=== PATIENT | female | born 1955 | race Caucasian/White ===

== ENCOUNTER 2017-03-24 08:48 | Outpatient (CLI) | payer OTHER | END 2017-03-24 08:49 | disposition home or self-care (01) | DX: D64.9 Anemia, unspecified (principal); Z51.81 Encounter for therapeutic drug level monitoring; E78.5 Hyperlipidemia, unspecified ==

== ENCOUNTER 2018-02-05 09:55 | Emergency (ER) | payer OTHER ==
[2018-02-05] MEDS ORDERED: ACETAMINOPHEN 325 MG TABLET PO STA (10:41)
--- NOTE | 2018-02-05 11:21 | XRAY Report ---
EXAM: CHEST RADIOGRAPHY EXAM DATE: 02/05/2018 11:09 AM. CLINICAL HISTORY: Productive cough fever,. COMPARISON: None. TECHNIQUE: 2 views. FINDINGS: Lungs/Pleura: Right midlung calcified granuloma. Increased interstitial markings at the left base. No other focal opacities evident. No pleural effusion. No pneumothorax. Normal volumes. Mediastinum: Heart and mediastinal contours are unremarkable. Other: Degenerative change in the spine with mild S-shaped thoracolumbar scoliosis. IMPRESSION: Increased interstitial markings left lung base could be chronic related to fibrosis or co uld represent an early infectious/viral process. No other potentially acute findings noted. [facility] Referring Provider Line: [phone] SITE ID: [id number]
--- NOTE | 2018-02-05 11:55 | ED Physician Documentation ---
PD HPI URI - Stated complaint Stated Complaint: FLU LIKE SX - Chief complaint Chief Complaint: Fever - History obtained from History obtained from: Patient - History of Present Illness Timing - onset: How many days ago (2) Timing details: Gradual onset Associated symptoms: Fever, Chills, Sore throat, Productive cough Recently seen: Clinic (She was seen in the outpatient clinic this morning, and was sent to the emergency department for further evaluation and treatment.) - Additional information Additional information: The patient is a 62-year-old female who presents with productive cough, fatigue , fever and chills, of 2 day's duration. She also complains of a slightly sore throat, and had a headache 2 days ago, but it is minimal now. She denies history of similar symptoms in the past. She does not smoke cigarettes. She has not had a flu vaccination. She was seen in the clinic this morning, and was sent to the emergency department for further evaluation and treatment. Review of Systems Constitutional: reports: Fever, Chills, Fatigue Eyes: reports: Photophobia (mild) Ears: reports: Ear pain Nose: denies: Congestion Throat: reports: Sore throat (slight) Cardiac: denies: Chest pain / pressure, Palpitations Respiratory: reports: Cough (productive). denies: Dyspnea GI: denies: Abdominal Pain, Nausea, Vomiting, Diarrhea : denies: Dysuria Skin: denies: Rash Musculoskeletal: denies: Back pain, Extremity swelling Neurologic: reports: Headache (mild). 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 - Present Medications Home Medications: Ambulatory Orders Medication Instructions Recorded Confirmed Citalopram [CeleXA] 10 mg PO ONCE 02/18/14 02/18/14 Vit D3-Vit K/Berberine/Hops 1 each PO 02/18/14 02/18/14 [Ostera Tablet] Azithromycin [Zithromax] 250 mg PO DAILY #6 tablet 02/05/18 - Allergies Allergies/Adverse Reactions: Allergies Allergy/AdvReac Type Severity Reaction Status Date / Time gentamicin [Gentamicin] Allergy Severe Unknown Verified 02/21/14 14:02 Sulfa (Sulfonamide Allergy Intermediate Rash Verified 02/18/14 14:55 Antibiotics) codeine AdvReac Mild Nausea Verified 02/21/14 14:02 - Social History Does the pt smoke?: No Smoking Status: Never smoker PD ED PE NORMAL - Vitals Vital signs reviewed: Yes (Slightly tachypneic initially.) - General General: Alert and oriented X 3, Well developed/nourished - HEENT HEENT: Atraumatic, EOMI, Ears normal, Moist mucous membranes, Pharynx benign - Neck Neck: Supple, no meningeal sign, No adenopathy, No JVD - Cardiac Cardiac: RRR, No murmur - Respiratory Respiratory: Clear bilaterally (No wheezes, rales, or rhonchi.) - Abdomen Abdomen: Soft, Non tender - Back Back: No CVA TTP - Derm Derm: No rash - Neuro Neuro: Alert and oriented X 3, No motor deficit, Normal speech Results - Vitals Vitals: Vital Signs - 24 hr 02/05/18 12:04 Temperature 37.4 C Heart Rate 73 Respiratory 20 Rate Blood Pressure 106/73 O2 Saturation 97 Oxygen O2 Source Room air - Labs Labs: Laboratory Tests 02/05/18 10:45 Influenza A (Rapid) Negative Influenza B (Rapid) Negative Influenza Types A,B Ag - - Rads (name of study) CXR Radiology: Prelim report reviewed, EMP read contemporaneously, See rad report ( Increased interstitial markings left lung base, could be chronic related to fibrosis or could represent an early infectious/viral process. No other potentially acute findings noted.) PD MEDICAL DECISION MAKING - ED course Complexity details: reviewed results, re-evaluated patient, considered differential, d/w patient, d/w family ED course: The patient's presentation is consistent with pneumonia, with chest x-ray revealing left lower lobe interstitial markings consistent with early infectious process. Her pulse oximetry is normal at 97% on room air. Her presentation does not suggest congestive heart failure or pulmonary embolus. Treatment in the emergency department included administration of Zithromax 500 mg orally, and acetaminophen 650 mg orally. I discussed with her and her antibiotic treatment and outpatient follow-up, as well as potentially worrisome signs or symptoms that should prompt reevaluation is needed emergency department. Departure - Departure Disposition: 01 Home, Self Care Clinical Impression: Pneumonia Qualifiers: Pneumonia type: due to unspecified organism Laterality: left Lung location: lower lobe of lung Qualified Code(s): J18.1 - Lobar pneumonia, unspecified organism Condition: Stable Instructions: ED Pneumonia Adult Follow-Up: JJ SIMMONS MD [Physician No Access] - Prescriptions: Azithromycin [Zithromax] 250 mg PO DAILY #6 tablet Comments: Take Zithromax daily as prescribed. You can use Tylenol or ibuprofen if needed for fever or discomfort. Follow up with your primary physician within 1-2 weeks. Call to schedule an appointment. Return to the emergency department if you develop increasing difficulty breathing, or otherwise worsening symptoms. Discharge Date/Time: 02/05/18 12:11
[2018-02-05] MEDS ORDERED: IBUPROFEN 800 MG TABLET PO STA (11:56)
[2018-02-05] MEDS ORDERED: AZITHROMYCIN 250 MG TABLET PO STA (11:57)
[2018-02-05 12:07] VITALS: BP 106/73
== END 2018-02-05 12:11 | disposition home or self-care (01) ==
LOC: ED 09:55
DX: J18.9 Pneumonia, unspecified organism (principal)
CPT/HCPCS: 71046; 87275; 87276; 99283; 99284; A9270

== ENCOUNTER 2018-04-03 09:38 | Outpatient (CLI) | payer OTHER ==
--- NOTE | 2018-04-03 13:57 | XRAY Report ---
TWO VIEW BILATERAL KNEES: 04/03/2018 CLINICAL INDICATION: Osteoarthritis. FINDINGS: Standing frontal and lateral views of the bilateral knees demonstrate moderate bilateral osteoarthritis. There is no evidence of acute fracture. No effusion is present on either side. IMPRESSION: MODERATE BILATERAL OSTEOARTHRITIS. TD: 04/03/2018 11:24
== END 2018-04-03 09:39 | disposition home or self-care (01) ==
LOC: DI 09:38
PROVIDERS: ATTEND Internal Medicine
DX: M17.0 Bilateral primary osteoarthritis of knee (principal)
CPT/HCPCS: 73565

== ENCOUNTER 2018-07-15 10:40 | Outpatient (CLI) | payer OTHER ==
[2018-07-15 17:36] LABS: BUN - BLOOD UREA NITROGEN 12 mg/dL (6-20); CARBON DIOXIDE - CO2 27 mmol/L (21-32); CHLORIDE 104 mmol/L (101-111); CHOL/HDL RATIO 3.1 (<4.4); CHOLESTEROL 249 mg/dL; CREATININE 0.5 mg/dL (0.4-1.0); GFR - MDRD 124 (>89); GLUCOSE 79 mg/dL (70-100); HDL CHOLESTEROL 81 mg/dL; LDL CHOLESTEROL,CALCULATED 154 mg/dL; LDL/HDL RATIO 1.9 (<4.4); SODIUM 138 mmol/L (135-145); VLDL CHOLESTEROL 14 mg/dL
== END 2018-07-15 10:41 | disposition home or self-care (01) ==
LOC: LAB.F 10:40
PROVIDERS: ATTEND Internal Medicine
DX: Z00.00 Encounter for general adult medical examination without abnormal findings (principal); M17.9 Osteoarthritis of knee, unspecified
CPT/HCPCS: 36415; 80048; 80061; 83721

== ENCOUNTER 2018-12-24 07:48 | Outpatient (CLI) | payer MEDICARE, OTHER ==
--- NOTE | 2018-12-24 08:34 | Mammography Report ---
Reason: SCREENING FOR BREAST CANCER Procedure Date: 12/24/2018 Accession Number: [id number] / [id number] Procedure: [facility] - Screening Mammo w/Fazal CPT Code: FULL RESULT: EXAM: Screening Mammo w/Fazal DATE: 12/24/2018 8:24 AM CLINICAL HISTORY: Routine screening. No reported personal or family history of breast cancer. History of bilateral breast reduction. TECHNIQUE: Bilateral CC and MLO views were obtained. COMPARISON: 03/27/2016 through 10/01/2012 FINDINGS: The breasts demonstrate scattered fibroglandular densities bilaterally. Bilateral breasts: There are stable operative changes of reduction mammoplasty. There are no suspicious masses, calcifications or areas of distortion. IMPRESSION: Benign findings RECOMMENDATION: Routine annual screening unless otherwise clinically indicated. BI-RADS CATEGORY 2: Benign findings STANDARD QUALIFYING STATEMENTS: 1. This examination was not reviewed with the aid of Computer-Aided Detection (CAD). 2. A negative or benign imaging report should not preclude biopsy if clinically suspicious findings are present. 3. Dense breasts may obscure an underlying neoplasm. 4. This examination was reviewed with the aid of 3D breast imaging (tomosynthesis).
== END 2018-12-24 07:49 | disposition home or self-care (01) ==
LOC: DI 07:48
PROVIDERS: ATTEND Internal Medicine
DX: Z12.31 Encounter for screening mammogram for malignant neoplasm of breast (principal)
CPT/HCPCS: 77063; 77067

== ENCOUNTER 2018-12-24 07:50 | Outpatient (CLI) | payer MEDICARE, OTHER ==
--- NOTE | 2018-12-24 12:34 | DEXA Report ---
Reason: MENOPAUSAL AND POSTMENOPAUSAL DISORDERS Procedure Date: 12/24/2018 Accession Number: [id number] / [id number] Procedure: DEX - Dexa Spine and/or Hip CPT Code: FULL RESULT: EXAM: Dexa Spine and/or Hip DATE: 12/24/2018 8:38 AM CLINICAL HISTORY: MENOPAUSAL AND POSTMENOPAUSAL DISORDERS TECHNIQUE: Dual energy x-ray absorptiometry (DXA) was performed on a tinyclues System. Regions measured are the AP Spine, femoral neck, and if needed forearm. COMPARISON: None. In accordance with the International Society for Clinical Densitometry (ISCD) guidelines, data from previous exams may be reanalyzed using current recommendations and techniques. This is done to allow a more accurate basis for comparison with the current study. FINDINGS: The data for the lumbar spine is as follows: BMD (g/cm/cm) T-SCORE Z-SCORE REGION L1 0.919 -1.8 -0.6 L2 1.018 -1.5 -0.3 L3 1.115 -0.7 0.5 L4 1.256 0.5 1.6 TOTAL 1.083 -0.8 0.4 NOTE: All evaluable vertebrae are used for classification The data for the hip is as follows: BMD (g/cm/cm) T-SCORE Z-SCORE REGION Neck 0.783 -1.8 -0.6 TOTAL 0.774 -1.9 -1.0 NOTE: The femoral neck or total proximal femur, whichever is lowest, is used for classification. IMPRESSION: THE WHO CLASSIFICATION BASED ON THE INTERNATIONAL REFERENCE STANDARD IS OSTEOPENIA. THE FRACTURE RISK IS INCREASED. RECOMMENDATION: Patients with diagnosis of osteoporosis or osteopenia should have regular bone mineral density assessment. For those eligible for Medicare, routine testing is allowed once every 2 years. Testing frequency can be increased for patients who have rapidly progressing disease or for those who are receiving medical therapy to restore bone mass. COMMENT: World Health Organization (WHO) definitions for osteoporosis and osteopenia: NORMAL BMD: T-score at -1.0 or higher, fracture risk is low OSTEOPENIA BMD: T-score between -1.0 and -2.5, fracture risk is increased. OSTEOPOROSIS BMD: T-score at -2.5 or lower, fracture risk is high. National Osteoporosis Foundation recommends: 1. Obtain adequate dietary calcium (at least 1200 mg per day) and vitamin D (400-800 international units per day). 2. Participate, as appropriate, in regular weightbearing and muscle-strengthening exercise. 3. Avoid tobacco use and reduce alcohol and caffeine intake. 4. For more detailed information see the website at www.NOF.org.
== END 2018-12-24 07:51 | disposition home or self-care (01) ==
LOC: DI 07:50
PROVIDERS: ATTEND Internal Medicine
DX: M85.89 Other specified disorders of bone density and structure, multiple sites (principal); N95.9 Unspecified menopausal and perimenopausal disorder
CPT/HCPCS: 77080

== ENCOUNTER 2021-09-15 15:02 | Emergency (ER) | payer MEDICARE, OTHER ==
[2021-09-15 15:21] VITALS: BP 114/69
--- NOTE | 2021-09-15 15:29 | ED Physician Documentation ---
PD HPI HEAD INJURY - Stated complaint Stated Complaint: RIGHT KNEE INJURY, POST KNEE SURGERY - Chief complaint Chief Complaint: Trauma Hd/Nk - History obtained from History obtained from: Patient - Additional information Additional information: She was walking on the sidewalk about an hour ago and tripped and fell face forward onto the pavement and also hit her right knee on the ground which was replaced in January of this year. She is quite worried about the knee. She is still able to walk and bear weight. No loss of consciousness or headache. 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 Home Medications: Ambulatory Orders Medication Instructions Recorded Confirmed Citalopram [CeleXA] 10 mg PO ONCE 02/18/14 02/18/14 Vit D3-Vit K/Berberine/Hops 1 each PO 02/18/14 02/18/14 [Ostera Tablet] Azithromycin [Zithromax] 250 mg PO DAILY #6 tablet 02/05/18 - Allergies Allergies/Adverse Reactions: Allergies Allergy/AdvReac Type Severity Reaction Status Date / Time gentamicin [Gentamicin] Allergy Severe Unknown Verified 09/15/21 15:21 Sulfa (Sulfonamide Allergy Intermediate Rash Verified 09/15/21 15:21 Antibiotics) codeine AdvReac Mild Nausea Verified 09/15/21 15:21 - Social History Does the pt smoke?: No Smoking Status: Never smoker PD ED PE NORMAL - Vitals Vital signs reviewed: Yes - General General: Alert and oriented X 3, No acute distress - HEENT HEENT: PERRL, EOMI, Other (The inferior "meat," of the nose is swollen but it is in the midline and not tender over the bones of the nose. No facial bony tenderness otherwise.) - Neck Neck: Supple, no meningeal sign, No bony TTP - Extremities Extremities: Other (There is an abrasion within the inferior part of her otherwise unremarkable anterior knee incision which is otherwise well-healed and she is focally tender but there is no other bony tenderness of the right knee and no ligamentous laxity.) - Neuro Neuro: Alert and oriented X 3, Normal speech Results - Vitals Vitals: Vital Signs - 24 hr 09/15/21 15:16 Temperature 36.5 C Heart Rate 71 Respiratory 18 Rate Blood Pressure 114/69 O2 Saturation 99 Oxygen O2 Source Room air - Rads (name of study) 3v R knee Radiology: EMP read contemporaneously Departure - Departure Disposition: 01 Home, Self Care Clinical Impression: Status post right knee replacement Contusion of right knee Qualifiers: Encounter type: initial encounter Qualified Code(s): S80.01XA - Contusion of right knee, initial encounter Nasal contusion Qualifiers: Encounter type: initial encounter Qualified Code(s): S00.33XA - Contusion of nose, initial encounter Fall from slip, trip, or stumble Qualifiers: Encounter type: initial encounter Qualified Code(s): W01.0XXA - Fall on same level from slipping, tripping and stumbling without subsequent striking against object, initial encounter Condition: Good Record reviewed to determine appropriate education?: Yes Instructions: ED Sprain Knee Follow-Up: Yehuda Crespo MD [Provider Admit Priv/Credential] - Comments: Tylenol as needed for pain, return for new or worsening symptoms. Follow-up with your surgeon as scheduled. Also putting the name of the local surgeon who does knee replacements on your form who may be able to perform it sooner than your surgeon at the [facility]. Discharge Date/Time: 09/15/21 16:48
--- NOTE | 2021-09-15 16:15 | XRAY Report ---
PROCEDURE: Knee 3 View RT INDICATIONS: knee injury TECHNIQUE: 3 views of the right knee(s) were acquired. COMPARISON: None available for comparison at time of dictation. FINDINGS: Bones: Patient is status post right total knee arthroplasty with patellar resurfacing. No evidence of hardware fracture or perihardware lucency to suggest complication. Alignment is normal. Soft tissues: Likely small joint effusion. Benign-appearing likely postsurgical calcification within the distal quadriceps tendon. IMPRESSION: Postsurgical changes of total knee arthroplasty with patellar resurfacing. No evidence of hardware co mplication or acute osseous abnormality. Likely small joint effusion. Reviewed by: Remington Reddy DO on 09/15/2021 3:13 PM AMBER Approved by: Remington Reddy DO on 09/15/2021 3:13 PM AMBER Station ID: [id number]
== END 2021-09-15 16:48 | disposition home or self-care (01) ==
LOC: ED 15:02
DX: S80.01XA Contusion of right knee, initial encounter (principal); S80.211A Abrasion, right knee, initial encounter; S00.33XA Contusion of nose, initial encounter; W01.0XXA Fall on same level from slipping, tripping and stumbling without subsequent striking against object, initial encounter; Y93.01 Activity, walking, marching and hiking; Y92.480 Sidewalk as the place of occurrence of the external cause; Z96.651 Presence of right artificial knee joint
CPT/HCPCS: 99282; 99283

== ENCOUNTER 2022-07-23 12:19 | Emergency (ER) | payer MEDICARE, OTHER ==
--- NOTE | 2022-07-23 13:23 | Ultrasound Report ---
PROCEDURE: Duplex Ext Veins Left INDICATIONS: calf pain and swelling TECHNIQUE: Real-time imaging, as well as color and pulse Doppler interrogation, were performed of the lower extr emity deep veins from the inguinal ligament to the popliteal fossa. COMPARISON: None. FINDINGS: The deep veins are normally compressible, and free of intraluminal thrombus. Color and pu lse Doppler demonstrate normal phasic intraluminal flow. There is normal augmentation response to di stal compression maneuver. There is a 13.8 x 0.8 x 2.8 cm fluid collection which extends from the left popliteal fossa inferiorl y towards the foot. IMPRESSION: 1. No deep vein thrombosis of the left lower extremity. Normal 2. Fluid collection within the left popliteal fossa suggesting left Olsen's cyst. Reviewed by: Griselda Anderson MD on 07/23/2022 1:22 PM PDT Approved by: Griselda Anderson MD on 07/23/2022 1:22 PM PDT Station ID: [id number]
--- NOTE | 2022-07-23 13:42 | ED Physician Documentation ---
History of Present Illness - Stated complaint Stated Complaint: LEFT CALF PX - Chief complaint Chief Complaint: Ext Problem - History obtained from History obtained from: Patient - History of Present Illness Timing: How many days ago (2-3) Pain level max: 5 Pain level now: 4 - Additonal information Additional information: Patient is a 66-year-old female who presents to the emergency department complaint of left calf pain, worsening for the past 2 to 3 days. She states the pain has been present since she had a left total knee replacement in September of last year, but it has become progressively worse. She has been doing physical therapy. Worse with movement and palpation. Better with rest. 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 - Present Medications Home Medications: Ambulatory Orders Medication Instructions Recorded Confirmed Citalopram [CeleXA] 10 mg PO ONCE 02/18/14 02/18/14 Vit D3-Vit K/Berberine/Hops 1 each PO 02/18/14 02/18/14 [Ostera Tablet] Azithromycin [Zithromax] 250 mg PO DAILY #6 tablet 02/05/18 - Allergies Allergies/Adverse Reactions: Allergies Allergy/AdvReac Type Severity Reaction Status Date / Time gentamicin [Gentamicin] Allergy Severe Unknown Verified 07/23/22 12:28 Sulfa (Sulfonamide Allergy Intermediate Rash Verified 07/23/22 12:28 Antibiotics) codeine AdvReac Mild Nausea Verified 07/23/22 12:28 - Social History Does the pt smoke?: No Smoking Status: Never smoker PD ED PE NORMAL - Vitals Vital signs reviewed: Yes - General General: Alert and oriented X 3, No acute distress - HEENT HEENT: Moist mucous membranes - Respiratory Respiratory: No respiratory distress - Derm Derm: Warm and dry - Extremities Extremities: Other (Mild posterior calf tenderness, proximal aspect of the left knee. No skin changes. Neurovascularly intact. Incisions are well-healed without signs of infection.) - Neuro Neuro: Alert and oriented X 3 - Psych Psych: Normal mood, Normal affect Results - Vitals Vitals: Vital Signs - 24 hr 07/23/22 12:21 Temperature 36.3 C L Heart Rate 69 Respiratory 17 Rate Blood Pressure 105/59 L O2 Saturation 99 Oxygen O2 Source Room air - Rads (name of study) Duplex ultrasound left lower extremity Radiology: Final report received, EMP read contemporaneously, See rad report (No DVT. Fluid collection consistent with Olsen's cyst) PD MEDICAL DECISION MAKING - ED course Complexity details: reviewed results, re-evaluated patient, considered differential, d/w patient ED course: 66-year-old female with what appears to be a Olsen's cyst on ultrasound. We will have her follow-up with her orthopedist for further care. No evidence of DVT. Patient counseled regarding signs and symptoms for which I believe and urgent re-evaluation would be necessary. Patient with good understanding of and agreement to plan and is comfortable going home at this time This document was made in part using voice recognition software. While efforts are made to proofread this document, sound alike and grammatical errors may occur. Departure - Departure Disposition: 01 Home, Self Care Clinical Impression: Bakers cyst Qualifiers: Laterality: left Qualified Code(s): M71.22 - Synovial cyst of popliteal space [Olsen], left knee Condition: Good Instructions: ED Cyst Olsen Follow-Up: JJ SIMMONS MD [Primary Care Provider] - Ty Amaya MD [Physician No Access] - Comments: You appear to have a Olsen's cyst on your ultrasound today. There is no evidence of blood clot. Please follow-up with your orthopedist for further care. Return if you worsen. PROCEDURE: Duplex Ext Veins Left INDICATIONS: calf pain and swelling TECHNIQUE: Real-time imaging, as well as color and pulse Doppler interrogation, were performed of the lower extremity deep veins from the inguinal ligament to the popliteal fossa. COMPARISON: None. FINDINGS: The deep veins are normally compressible, and free of intraluminal thrombus. Color and pulse Doppler demonstrate normal phasic intraluminal flow. There is normal augmentation response to distal compression maneuver. There is a 13.8 x 0.8 x 2.8 cm fluid collection which extends from the left popliteal fossa inferiorly towards the foot. IMPRESSION: 1. No deep vein thrombosis of the left lower extremity. 2. Fluid collection within the left popliteal fossa suggesting left Olsen's cyst.
[2022-07-23 13:56] VITALS: BP 115/68
== END 2022-07-23 13:56 | disposition home or self-care (01) ==
LOC: ED 12:19
DX: M71.22 Synovial cyst of popliteal space [Baker], left knee (principal)
CPT/HCPCS: 99282; 99284